=== PATIENT | male | born 1985 | race Caucasian/White ===

== ENCOUNTER 2017-03-19 14:09 | Emergency (ER) | payer MEDICAID, SELFPAY ==
[~2017-03-19] VITALS: Ht 180.3 cm; Wt 67.1 kg
[2017-03-19 14:10] VITALS: BP 128/72
--- NOTE | 2017-03-19 15:18 | REP ---
ABDOMEN, FLAT AND UPRIGHT, PA CHEST, FOUR VIEWS: HISTORY: Left inguinal hernia. Air is present in small and large intestine. There are no air fluid levels or dilated loops of intestine. There is no pneumoperitoneum. The lungs are clear. IMPRESSION: Nonspecific bowel gas pattern. Signed by Chris Garsia MD 03/19/2017 03:34 P
--- NOTE | 2017-03-19 15:46 | REP ---
INGUINAL ULTRASOUND: Bilateral inguinal ultrasound performed. There is no evidence of inguinal hernia bilaterally. No fluid collection or significant adenopathy is seen. Normal size inguinal lymph nodes are present. IMPRESSION: No sonographic evidence of inguinal hernia bilaterally. Signed by Jonathan Rosado MD 03/19/2017 07:14 P
== END 2017-03-19 16:43 | disposition home or self-care (01) ==
LOC: M ED 15:47
DX: K41.90 Unilateral femoral hernia, without obstruction or gangrene, not specified as recurrent (principal); F17.200 Nicotine dependence, unspecified, uncomplicated

== ENCOUNTER → 2017-05-15 | Day surgery (SDC) | payer MEDICAID, SELFPAY ==
[~2017-05-15] VITALS: Ht 180.3 cm; Wt 81.6 kg
[~2017-05-15] MED LIST: BUPIVACAINE/EPIN 0.25% 30 ML VIAL As Ordered ONE; GLYCOPYRROLATE INJ 0.2 MG/ML 2 ML VIAL As Ordered ONE; HYDROmorphone HCL 2 MG/ML 1ML VIAL (J1170) As Ordered ONE; KETOROLAC 60 MG/2 ML VIAL (J1885) As Ordered ONE; LIDOCAINE 2% INJ 100 MG/5 ML SDV (FOR ANES.) As Ordered ONE; LR 1,000 ML IV ONE; LR 1,000 ML IV SCH; METOCLOPRAMIDE INJ 10MG/2ML VIAL (J2765) As Ordered ONE; MIDAZOLAM INJ 2 MG/2 ML VIAL (J2250) As Ordered ONE; NEOSTIGMINE 1MG/ML 5 ML SYRINGE (J2710) As Ordered ONE; NORCO, ANEXSIA 5/325MG TABLET (HYDROcodone/ACETAMINOPHEN) PO PRN; ONDANSETRON 4MG/2ML VIAL (J2405) As Ordered ONE; ONDANSETRON 4MG/2ML VIAL (J2405) IV PRN; PROPOFOL 200 MG/20 ML VIAL As Ordered ONE; ROCURONIUM BROMIDE 50 MG/5 ML VIAL/SYRINGE As Ordered ONE; dexameTHASONE 4 MG/ML 1ML VIAL (J1100) As Ordered ONE; fentaNYL 100 MCG/2 ML INJECTION (J3010) IV PRN; fentaNYL 250 MCG/5 ML INJECTION (J3010) As Ordered ONE
[2017-05-15] MEDS: NORCO, ANEXSIA 5/325MG TABLET (HYDROcodone/ACETAMINOPHEN) PO PRN ×2 (17:49→18:20)
[2017-05-15 19:05] VITALS: BP 128/61
--- NOTE | 2017-05-17 08:41 | RO ---
DATE OF PROCEDURE: 05/15/2017 PREOPERATIVE DIAGNOSIS: Incarcerated left inguinal hernia. POSTOPERATIVE DIAGNOSIS: Incarcerated left inguinal hernia. PROCEDURE: Robotic-assisted incarcerated left inguinal hernia repair. SURGEON: Jonathan Freed DO DEPARTMENT SUPERVISOR: Caden Ayala MD ANESTHESIA: General. ESTIMATED BLOOD LOSS: 5 mL. COMPLICATIONS: None. INDICATIONS FOR PROCEDURE: The patient is a 31-year-old male who presents with a large bulge in the left groin. He was found to have a very large nonreducible inguinal hernia on the left. After careful history and physical, recommendation was to proceed with robotic repair. Risks and benefits of the procedure are not limited to, but including bleeding, infection, hernia formation, hernia recurrence, damage to surrounding structures, and the need for further surgery were discussed in detail with the patient. Informed consent was obtained and procedure was planned. DESCRIPTION OF PROCEDURE: The patient brought back to operating room 7. After sufficient sedation, the abdomen was sterilely prepped and draped. Next, a time out was done to confirm proper patient and proper procedure. Following that, a 5 mm supraumbilical incision was made. A Veress needle was then used to insufflate the abdomen. Next, the Veress needle was removed and 5 mm OptiView port was used to access to the abdomen. Once abdomen was entered, 8 mm ports were placed in the left and right abdomen. Umbilical port was then removed and replaced with an 8 mm robotic port. Next, the robot was docked to the ports. Next, the cecum was carefully dissected free from its lateral peritoneal reflection near the left groin to create some space for the hernia repair. A large amount of small bowel as well as omentum was carefully reduced from the hernia sac. Next the peritoneum was entered with sharp dissection, creating flaps both superiorly and inferiorly. Once this was completed, the hernia sac was carefully dissected free circumferentially and dissected away from all the cord structures. This took a large amount of time due to the very large size of the hernia sac. Once it had been completely dissected free, it was pulled inside of the peritoneal space. The dissection was continued medially onto the pubic symphysis. Once the dissection was complete and the vas deferens was completely mobilized until started turned medially, the Bard 3-D Max large mesh was placed inside of the preperitoneal space. #2-0 Vicryl suture was used to tag it to the pubic symphysis. The mesh was then laid down until it was flat. Once that was completed, barbed suture was used to reapproximate the peritoneal opening. Once this was all completed, the procedure was done, the abdomen was desufflated. Skin incisions were closed with #4-0 Vicryl subcuticular sutures. The abdomen was cleaned and dried. Steri-Strips and 4x4 and tape were applied thus ending procedure.
== END | disposition home or self-care (01) ==
LOC: M SDC 11:17
PROVIDERS: ATTEND Surgery
DX: K40.31 Unilateral inguinal hernia, with obstruction, without gangrene, recurrent (principal); F17.210 Nicotine dependence, cigarettes, uncomplicated
CPT/HCPCS: 49650; C1781; J0690; J1100; J1170; J1885; J2250; J2405; J2710; J2765; J3010

== ENCOUNTER → 2020-05-06 | Outpatient (CLI) | payer OTHER | LOC: M LABSMTC 08:30 | PROVIDERS: ATTEND Anesthesiology | DX: Z01.818 Encounter for other preprocedural examination (principal); Z11.59 Encounter for screening for other viral diseases; Z20.828 Contact with and (suspected) exposure to other viral communicable diseases | CPT/HCPCS: C9803; U0002 ==

== ENCOUNTER 2020-05-09 06:06 | Day surgery (SDC) | payer OTHER ==
[~2020-05-09] VITALS: Ht 180.3 cm; Wt 80.3 kg
[~2020-05-09 06:06] MED LIST changes: -BUPIVACAINE/EPIN 0.25% 30 ML VIAL As Ordered ONE; -GLYCOPYRROLATE INJ 0.2 MG/ML 2 ML VIAL As Ordered ONE; -HYDROmorphone HCL 2 MG/ML 1ML VIAL (J1170) As Ordered ONE; -KETOROLAC 60 MG/2 ML VIAL (J1885) As Ordered ONE; -LIDOCAINE 2% INJ 100 MG/5 ML SDV (FOR ANES.) As Ordered ONE; -LR 1,000 ML IV SCH; -METOCLOPRAMIDE INJ 10MG/2ML VIAL (J2765) As Ordered ONE; -MIDAZOLAM INJ 2 MG/2 ML VIAL (J2250) As Ordered ONE; -NEOSTIGMINE 1MG/ML 5 ML SYRINGE (J2710) As Ordered ONE; -NORCO, ANEXSIA 5/325MG TABLET (HYDROcodone/ACETAMINOPHEN) PO PRN; -ONDANSETRON 4MG/2ML VIAL (J2405) As Ordered ONE; -ONDANSETRON 4MG/2ML VIAL (J2405) IV PRN; -PROPOFOL 200 MG/20 ML VIAL As Ordered ONE; -ROCURONIUM BROMIDE 50 MG/5 ML VIAL/SYRINGE As Ordered ONE; +ceFAZolin SOD 2 GM in IV 1 EA IV ONE; -dexameTHASONE 4 MG/ML 1ML VIAL (J1100) As Ordered ONE; -fentaNYL 100 MCG/2 ML INJECTION (J3010) IV PRN; -fentaNYL 250 MCG/5 ML INJECTION (J3010) As Ordered ONE
[2020-05-09] MEDS ORDERED: BUPIVACAINE HCL 0.25% 30ML VIAL As Ordered ONE (07:12)
[2020-05-09] MEDS ORDERED: LIDOCAINE 1% SDV 30ML VIAL As Ordered ONE (07:12)
[2020-05-09] MEDS ORDERED: fentaNYL 250 MCG/5 ML INJECTION (J3010) As Ordered ONE (07:22)
[2020-05-09] MEDS ORDERED: dexameTHASONE 4 MG/ML 1ML VIAL (J1100 PER 1MG) As Ordered ONE (07:22)
[2020-05-09] MEDS ORDERED: ROCURONIUM BROMIDE 50 MG/5 ML VIAL As Ordered ONE ×2 (07:22→08:16)
[2020-05-09] MEDS ORDERED: LIDOCAINE 2% 100MG/5ML SDV (FOR ANES.) As Ordered ONE (07:22)
[2020-05-09] MEDS ORDERED: propofoL 200 MG/20 ML VIAL As Ordered ONE (07:22)
[2020-05-09] MEDS ORDERED: MIDAZOLAM INJ 2MG/2ML VIAL (J2250 PER 1MG) As Ordered ONE (07:23)
[2020-05-09] MEDS ORDERED: KETOROLAC 60MG 2ML VIAL As Ordered ONE (08:16)
[2020-05-09] MEDS ORDERED: ONDANSETRON 4MG/2ML VIAL As Ordered ONE (08:16)
[2020-05-09] MEDS ORDERED: HYDROmorphone HCL 2 MG/ML 1ML VIAL (J1170) As Ordered ONE (08:16)
[2020-05-09] MEDS ORDERED: ACETAMINOPHEN 1000MG 100ML IV BTL (OFIRMEV) (J0131 PER 10MG) As Ordered ONE (08:16)
[2020-05-09] MEDS ORDERED: LACRILUBE (AKWA TEARS) OPHTH OINT 3.5 GM As Ordered ONE (09:41)
[2020-05-09] MEDS ORDERED: GLYCOPYRROLATE INJ 0.2 MG/ML 2 ML VIAL As Ordered ONE (10:51)
[2020-05-09] MEDS ORDERED: NEOSTIGMINE 10MG/10ML VIAL (J2710 PER 0.5MG) As Ordered ONE (10:51)
[2020-05-09] MEDS ORDERED: ceFAZolin 1GM VIAL (J0690 PER 500MG) As Ordered ONE (11:25)
[2020-05-09] MEDS ORDERED: oxyCODONE 5MG TAB PO PRN (12:30)
[2020-05-09] MEDS ORDERED: ONDANSETRON 4MG/2ML VIAL IV PRN (12:30)
[2020-05-09] MEDS ORDERED: fentaNYL 100 MCG/2 ML INJECTION (J3010) IV PRN (12:30)
[2020-05-09] MEDS ORDERED: NORCO, ANEXSIA 5/325MG TABLET (HYDROcodone/ACETAMINOPHEN) PO PRN (12:30)
[2020-05-09] MEDS ORDERED: LR 1,000 ML IV SCH (12:30)
[2020-05-09] MEDS ORDERED: KETOROLAC 30 MG/ML 1ML VIAL IV PRN (12:30)
[2020-05-09 13:08] VITALS: BP 132/59
== END 2020-05-09 15:20 | disposition home or self-care (01) ==
LOC: M SDC 06:06
PROVIDERS: ATTEND Surgery
DX: K40.91 Unilateral inguinal hernia, without obstruction or gangrene, recurrent (principal); F17.218 Nicotine dependence, cigarettes, with other nicotine-induced disorders
CPT/HCPCS: 49651; 88302; C1781; J0131; J0690; J1100; J1170; J1885; J2250; J2405; J2710; J3010